=== PATIENT | female | born 2000 | race Caucasian/White ===

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

== ENCOUNTER 2018-11-21 21:27 | Emergency (ER) | payer OTHER ==
--- NOTE | 2018-11-21 22:40 | ED ---
Respiratory - HPI Summary HPI Summary: Pt is a 18 y/o F presenting to the ED with a chief complaint of a sore throat. She is presently 39 weeks . She reports that two days ago she woke up with a sore throat that is now getting better. She denies cough, fever, and sore throat. She states her boyfriends mother diagnosed herself with whooping cough and was worried the pt may have it. - History of Current Complaint Chief Complaint: EDUpperRespComplaint Stated Complaint: COUGH PER PT Time Seen by Provider: 11/21/18 22:34 Hx Obtained From: Patient Onset/Duration: Sudden Onset, Lasting Days, Resolved Initial Severity: Mild Current Severity: None Pain Intensity: 0 Sputum Amount: None Aggravating Factor(s): Nothing Alleviating Factor(s): Nothing Associated Signs and Symptoms: Negative - Allergy/Home Medications Allergies/Adverse Reactions: Allergies Allergy/AdvReac Type Severity Reaction Status Date / Time No Known Allergies Allergy Verified 11/21/18 21:35 PMH/Surg Hx/FS Hx/Imm Hx Previously Healthy: Yes Endocrine/Hematology History: Denies: Hx Anticoagulant Therapy, Hx Blood Disorders, Hx Diabetes, Hx Thyroid Disease, Hx Anemia, Hx Unexplained Bleeding Cardiovascular History: Denies: Hx Hypertension Respiratory History: Reports: Hx Asthma - as a child Denies: Hx Chronic Obstructive Pulmonary Disease (COPD) GI History: Denies: Hx Ulcer - Immunization History Date of Tetanus Vaccine: unk Date of Influenza Vaccine: unk Infectious Disease History: No Infectious Disease History: Denies: Hx Clostridium Difficile, Hx Hepatitis, Hx Human Immunodeficiency Virus (HIV), Hx of Known/Suspected MRSA, Hx Shingles, Hx Tuberculosis, Hx Known/ Suspected VRE, Hx Known/Suspected VRSA, History Other Infectious Disease, Traveled Outside the [place] in Last 30 Days - Family History Known Family History: Negative: Diabetes - Social History Alcohol Use: None Hx Substance Use: No Substance Use Type: Reports: None Hx Tobacco Use: No Smoking Status (MU): Never Smoked Tobacco Have You Smoked in the Last Year: No Review of Systems Negative: Fever Negative: Sore Throat Negative: Cough All Other Systems Reviewed And Are Negative: Yes Physical Exam - Summary Physical Exam Summary: Appearance: Well-appearing, Well-nourished, lying in bed comfortable Skin: Warm, dry, no obvious rash Eyes: sclera anicteric, no conjunctival pallor ENT: mucous membranes moist Neck: deferred Respiratory: No signs of respiratory distress Cardiovascular: Appears well perfused, pulses are nml Abdomen: deferred Musculoskeletal: Moving all 4 extremities without obvious discomfort Neurological: Awake and alert, mentation is normal, speech is fluent and appropriate Psychiatric: affect is normal, does not appear anxious or depressed Triage Information Reviewed: Yes Vital Signs On Initial Exam: Initial Vitals Temp Pulse Resp BP Pulse Ox 99.1 F 109 16 125/96 95 11/21/18 21:34 11/21/18 21:34 11/21/18 21:34 11/21/18 21:34 11/21/18 21:34 Vital Signs Reviewed: Yes Diagnostics - Vital Signs Vital Signs Temp Pulse Resp BP Pulse Ox 11/21/18 21:34 99.1 F 109 16 125/96 95 - Laboratory Lab Statement: Any lab studies that have been ordered have been reviewed, and results considered in the medical decision making process. Disposition - Course Course Of Treatment: Pt is a 18 y/o F presenting to the ED with a chief complaint of a sore throat. She is presently 39 weeks . She reports that two days ago she woke up with a sore throat that is now getting better. She denies cough, fever, and sore throat. She states her boyfriends mother diagnosed herself with whooping cough and was worried the pt may have it. The pt denies any sx that would be associated with whooping cough, and states she feels perfectly normal. She will be sent home and is agreeable with this plan. Discharge - Sign-Out/Discharge Documenting (check all that apply): Patient Departure Patient Received Moderate/Deep Sedation with Procedure: No - Discharge Plan Condition: Stable Disposition: HOME Referrals: [facility] [place] [facility] [Outside] - Attestation Statements Document Initiated by Scribe: Yes Documenting Scribe: Simi Veras Provider For Whom Randall is Documenting (Include Credential): Arden Mar MD. Scribe Attestation: Simi Ibanez, scribed for Arden Mar MD. on 11/21/18 at 2240. Status of Scribe Document: Ready
[2018-11-21 22:55] VITALS: BP 129/91
== END 2018-11-21 22:54 | disposition home or self-care (01) ==
LOC: ED 21:27
DX: O26.93 Pregnancy related conditions, unspecified, third trimester (principal); J02.9 Acute pharyngitis, unspecified; Z3A.39 39 weeks gestation of pregnancy
CPT/HCPCS: 99282

== ENCOUNTER 2018-11-23 08:55 | Inpatient (IN) | payer OTHER ==
[2018-11-23] MEDS ORDERED: Penicillin G Potassium IV* 5,000,000 UNITS in NS 0.9% 100 ML* 100 ML IVPB ONE (09:50)
[2018-11-23] MEDS ORDERED: Buffered Lidocaine 1% SYRIN* 1 ML/SYRINGE INTRADERM ONE (09:50)
[2018-11-23] MEDS ORDERED: Lactated Ringers 1000 ML Bag* 1,000 ML IV ONE (09:50)
[2018-11-23] MEDS ORDERED: Penicillin G Potassium IV* 2,500,000 UNITS in NS 0.9% 100 ML* 100 ML IVPB SCH ×2 (10:00→14:30)
[2018-11-23] MEDS ORDERED: Lactated Ringers 1000 ML Bag* 1,000 ML IV SCH ×2 (10:00→18:00)
--- NOTE | 2018-11-23 10:00 | HP ---
General Information - Reason for Visit pt presents with c/o irregular ctx since midnight and + blood show. Pt denies LOF. - General Information Maternal Age: 15 Grav: 1 Para: 0 SAB: 0 IEA: 0 Estimated Due Date: 02/28/16 Determined By: Early Ultrasound Maternal Blood Type and Rh: O Positive - Results this Serology/RPR Result: Non-Reactive Rubella Result: Non-Immune HBsAg Result: Negative HIV Result: Negative GBS Culture Result: Positive Past Medical History Delivery History: Hx Uncomplicated Vaginal Delivery Pertinent Past Medical History: See Records - history of depression Pertinent Past Surgical History: None Pertinent Family History: Non-Contributory - Antepartal Records Antepartal Records: Reviewed, Uncomplicated Review of Systems Constitutional: Uncomfortable CV Complaint: No Respiratory: Shortness of Breath: No Gastrointestinal: No Nausea/Vomiting, Normal Bowel Movement Genitourinary: No Dysuria, No Bleeding, No Leaking Fluid Musculoskeletal: No Epigastric Pain, Contractions Neurological: No Headache, No Visual Changes Movement: Normal Exam Allergies/Adverse Reactions: Allergies No Known Allergies Allergy (Verified 11/23/18 08:19) BP:135/85, P:115 - Measurements Height: 5 ft 2 in Weight: 168 lb Body Mass Index (BMI): 30.7 Pre- Weight: 131 lb - Exam Breast: Breast Exam Deferred CVA: No CVA Tenderness Extremities: No Edema Heart: Normal Rhythm/Heart Sounds HEENT: No Significant Findings Lungs: Clear Bilaterally Rectal: Rectal Exam Deferred Reflexes: DTR 2+ Thyroid: No Thyromegaly - Abdominal Exam Abdomen Exam: Fundal Height Consistent with Dates - Ultrasound/Biophysical Profile Ultrasound Status: Not Done Targeted Exam Findings See L&D Outpatient Visit Provider Note for Findings: N/A Estimated Weight: [id number] Cervical Exam: 6cm Effacement: 90% Station: 0 Presenting Part: Vertex Membrane Status: Intact Bleeding/Discharge: Bloody Show EFM Findings - External Monitor Findings Baseline Heart Rate: 140 External Monitor Findings: Accelerations Present, No Pattern of Variable or Late Decelerations, Variability Moderate, Baseline Stable Contractions: Regular, Moderate, 45-90 Seconds Contraction Frequency: 5-6 Assessment/Plan - Assessment 18 y.o. 39w1d EGA, in active labor, GBS positive. - Plan Plan: Admit - Anticipate Vaginal Delivery - Date/Time of Admission Date of Admission: 11/23/18 Time of Admission: 09:45
[2018-11-23 10:43] LABS: ABS Basophils 0 10^3/ul (0-0.2); ABS Eosinophils 0.2 10^3/ul (0-0.6); ABS Lymphocytes 1.7 10^3/ul (1.0-4.8); ABS Monocytes 0.6 10^3/ul (0-0.8); ABS Neutrophils 7.5 10^3/ul (1.5-7.7); ABS Nucleated RBC 0 10^3/ul; Eosinophil % 2.4 %; Hematocrit 34 % (33-41); Hemoglobin 11.2 g/dL (12.0-16.0); Lymphocyte % 17.2 %; Mean Corpuscular HGB Conc 33 g/dL (31-36); Mean Corpuscular Hemoglobin 28 pg (27-31); Mean Corpuscular Volume 85 fL (80-97); Mean Platelet Volume 9.1 fL (7.4-10.4); Nucleated Red Blood Cells % 0; Platelet Count 179 10^3/uL (150-450); Red Blood Count 3.98 10^6 /uL (3.70-4.87); Red Cell Distribution Width 14 % (10.5-15); White Blood Count 10.1 10^3/uL (3.5-10.8)
--- NOTE | 2018-11-23 16:14 | PN ---
Progress Note - Progress Note Date of Service: 11/23/18 SOAP: Subjective: [Pt coping well, reports increase in pressure. ] Objective: [BP: 125/84, P:111, R:18, FHR: 145bpm, AROM- clear, scant 8/100/-1] Assessment: [18 y.o. , FT IN LABOR] Plan: [1. pushing]
[2018-11-23] MEDS ORDERED: Dibucaine 1% 28.35 GM TUBE PR PRN (17:55)
[2018-11-23] MEDS ORDERED: Acetaminophen TAB* 325 MG PO PRN (17:55)
[2018-11-23] MEDS ORDERED: Glycerin ADULT SUPP PR PRN (17:55)
--- NOTE | 2018-11-23 17:58 | PROCNOTE ---
[facility] OB: Delivery Note - Delivery A Date of : 11/23/18 - CHAPARRITA 12[birth year]10[birth year]18 Time of : 17:24 [place] Sex: Male [place] Weight at : 7 lb 9 oz Score 1 Minute: 9 Score 5 Minutes: 9 Gestational Age in Weeks and Days at Delivery: 182 Weeks and 5 Days Delivery Method: Spontaneous Vaginal Labor: Spontaneous Did Patient attempt ?: N/A, No Previous Amniotic Fluid: Clear Estimated Blood Loss: 500 Anesthesia/Analgesia: None Delivered By: Shalini Reagan - [place] Perineal Injury: Perineal Laceration, 1st Degree Perineal Repair: By Delivering Practioner - Events Delivery Events of Note: Post- Bleeding - Meds Given
[2018-11-23] MEDS ORDERED: OXYTOCIN* 10 UNITS/ML 1 ML VIAL IV ONE (18:17)
[2018-11-23] MEDS ORDERED: Misoprostol TAB* 200 MCG VAGINAL ONE (18:18)
[2018-11-23] MEDS ORDERED: Misoprostol TAB* 200 MCG ONE (18:27)
[2018-11-23] MEDS ORDERED: OXYTOCIN* 10 UNITS/ML 1 ML VIAL ONE ×2 (18:27→18:28)
[2018-11-23] MEDS: Oxytocin 20 UNITS in LR* LOW DOSE 1000 ml IVPB SCH (19:30)
[2018-11-23] MEDS ORDERED: Oxytocin in LR* 20 UNITS/1,000 ML BAG IVPB ONE (19:34)
[2018-11-23] MEDS: Witch Hazel PAD* JAR TOPICAL PRN (20:35)
[2018-11-23] MEDS ORDERED: Simethicone TAB* 80 MG TAB.CHEW PO SCH (21:00)
[2018-11-23] MEDS: Docusate CAP* 100 MG PO SCH (21:47)
[2018-11-23] MEDS: Ibuprofen TAB* 600 MG PO PRN (21:47)
[2018-11-24] MEDS: Oxytocin 20 UNITS in LR* LOW DOSE 1000 ml IVPB SCH (03:48)
[2018-11-24] MEDS ORDERED: Varicella Virus Vaccine Live* 0.5 ML VIAL SUBCUT ONE (07:58)
[2018-11-24 10:18] LABS: ABS Basophils 0 10^3/ul (0-0.2); ABS Eosinophils 0.1 10^3/ul (0-0.6); ABS Lymphocytes 1.4 10^3/ul (1.0-4.8); ABS Monocytes 0.7 10^3/ul (0-0.8); ABS Neutrophils 8.7 10^3/ul (1.5-7.7); ABS Nucleated RBC 0 10^3/ul; Eosinophil % 0.8 %; Hematocrit 29 % (33-41); Hemoglobin 9.5 g/dL (12.0-16.0); Lymphocyte % 12.6 %; Mean Corpuscular HGB Conc 33 g/dL (31-36); Mean Corpuscular Hemoglobin 28 pg (27-31); Mean Corpuscular Volume 85 fL (80-97); Mean Platelet Volume 8.9 fL (7.4-10.4); Nucleated Red Blood Cells % 0; Platelet Count 154 10^3/uL (150-450); Red Blood Count 3.37 10^6 /uL (3.70-4.87); Red Cell Distribution Width 14 % (10.5-15); White Blood Count 10.9 10^3/uL (3.5-10.8)
[2018-11-24] MEDS: Docusate CAP* 100 MG PO SCH ×4 (10:41→21:23)
[2018-11-24] MEDS: Ferrous Gluconate TAB* 324 MG TAB PO SCH ×2 (10:41→21:23)
[2018-11-24] MEDS: Ibuprofen TAB* 600 MG PO PRN (23:53)
[2018-11-25 07:54] VITALS: BP 109/68
[2018-11-25] MEDS: Ibuprofen TAB* 600 MG PO PRN (07:59)
[2018-11-25] MEDS: Docusate CAP* 100 MG PO SCH ×2 (07:59→14:24)
[2018-11-25] MEDS: Ferrous Gluconate TAB* 324 MG TAB PO SCH (07:59)
[2018-11-25] MEDS: Witch Hazel PAD* JAR TOPICAL PRN (14:24)
== END 2018-11-25 15:30 | disposition home or self-care (01) | DRG 560 ==
LOC: MCHOBOUT 08:55 → MCHOB 09:46
PROVIDERS: ADMIT Midwife; ATTEND Midwife
PROC: 10E0XZZ Delivery of Products of Conception, External Approach (ICD-10-PCS; principal; 2018-11-23)
PROC: 0HQ9XZZ Repair Perineum Skin, External Approach (ICD-10-PCS; 2018-11-23)
PROC: 4A1HXCZ Monitoring of Products of Conception, Cardiac Rate, External Approach (ICD-10-PCS; 2018-11-23)
PROC: 10907ZC Drainage of Amniotic Fluid, Therapeutic from Products of Conception, Via Natural or Artificial Opening (ICD-10-PCS; 2018-11-23)
DX: O99.824 Streptococcus B carrier state complicating childbirth (principal); Z37.0 Single live birth; O70.0 First degree perineal laceration during delivery; O72.1 Other immediate postpartum hemorrhage; Z3A.39 39 weeks gestation of pregnancy; O90.81 Anemia of the puerperium
CPT/HCPCS: 36415; 85025; 86850; 86900; 86901; 99282; A9270-GY; J2540; J2590